=== PATIENT | female | born 1965 | race Caucasian/White ===

== ENCOUNTER 2022-08-25 09:24 | Outpatient (CLI) | payer BC, SELFPAY ==
[2022-08-25 14:57] LABS: Free T4 Free Thyroxine* 1.22 ng/dL (0.70-1.85)
== END 2022-08-25 09:25 | disposition home or self-care (01) ==
LOC: LKVREF 09:24
PROVIDERS: PCP Emergency Medicine; Visit Provider Emergency Medicine
DX: R79.89 Other specified abnormal findings of blood chemistry (principal)
CPT/HCPCS: 84439; 84443

== ENCOUNTER 2022-10-12 09:51 | Outpatient (CLI) | payer BC, SELFPAY | END 2022-10-12 09:52 | disposition home or self-care (01) | LOC: OP CLINIC 09:53 | PROVIDERS: PCP Emergency Medicine; Visit Provider Surgery | DX: Z12.11 Encounter for screening for malignant neoplasm of colon (principal); Z80.0 Family history of malignant neoplasm of digestive organs | CPT/HCPCS: 45378; 99153; J2250; J3010 ==

== ENCOUNTER 2022-11-16 08:03 | Outpatient (CLI) | payer BC, SELFPAY ==
--- NOTE | 2022-11-16 08:15 | CRLHL7_ITS ---
For Patients: As a result of the Century Cures Act, medical imaging exams and procedure reports are released immediately into your electronic medical record. You may view this report before your referring provider. If you have questions, please contact your health care provider. BILATERAL SCREENING MAMMOGRAM WITH COMPUTER-AIDED DETECTION AND TOMOSYNTHESIS TECHNIQUE: CC and MLO views were obtained. These mammographic images have been obtained using full-field digital technique. These mammographic images were interpreted with the benefit of computer-aided detection. Breast tomosynthesis was used in this interpretation. COMPARISON FILM: 10/14/15, 04/03/19 and 11/27/20. FINDINGS: The breasts are heterogeneously dense, which may obscure small masses. IMPRESSION: There is no radiographic evidence for malignancy. ASSESSMENT: BI-RADS Category 1: Negative RECOMMENDATION: Routine screening mammogram in 1 year. A lay language report of this examination will be provided to the patient. KIKO FERMIN M.D. Diagnostic Radiologist [email or web address] Transcribed: 3:[address]/Dictated by: Kiko Fermin MD @ 11/16/2022 11:21:00 AM (Electronically Signed)
== END 2022-11-16 08:04 | disposition home or self-care (01) ==
LOC: MAMMO 08:04
PROVIDERS: PCP Emergency Medicine; Visit Provider Emergency Medicine
DX: Z12.31 Encounter for screening mammogram for malignant neoplasm of breast (principal); R92.2 Inconclusive mammogram
CPT/HCPCS: 77063; 77067

== ENCOUNTER 2023-07-01 09:11 | Outpatient (CLI) | payer BC, SELFPAY | END 2023-07-01 09:12 | disposition home or self-care (01) | LOC: NFLDREF 15:05 | PROVIDERS: PCP Emergency Medicine; Referring Provider Emergency Medicine; Visit Provider Emergency Medicine | DX: R79.89 Other specified abnormal findings of blood chemistry (principal) | CPT/HCPCS: 80053; 80061; 84443 ==

== ENCOUNTER 2024-01-17 11:17 | Outpatient (CLI) | payer BC, SELFPAY ==
--- NOTE | 2024-01-17 11:30 | CRLHL7_ITS ---
For Patients: As a result of the Century Cures Act, medical imaging exams and procedure reports are released immediately into your electronic medical record. You may view this report before your referring provider. If you have questions, please contact your health care provider. BILATERAL SCREENING MAMMOGRAM WITH COMPUTER-AIDED DETECTION AND TOMOSYNTHESIS TECHNIQUE: CC and MLO views were obtained. These mammographic images have been obtained using full-field digital technique. These mammographic images were interpreted with the benefit of computer-aided detection. Breast Tomosynthesis was used in this interpretation. COMPARISON FILM: 11/16/22, 11/27/20, 04/03/19. FINDINGS: The breasts are heterogeneously dense, which may obscure small masses. IMPRESSION: There is no radiographic evidence for malignancy. ASSESSMENT: BI-RADS Category 1: Negative RECOMMENDATION: Routine screening mammogram in 1 year. A lay language report of this examination will be provided to the patient. Kiko Steve M.D. Diagnostic Radiologist [email or web address] SP/Dictated by: Kiko Steve MD @ 01/17/2024 12:57:00 PM (Electronically Signed)
== END 2024-01-17 11:18 | disposition home or self-care (01) ==
LOC: MAMMO 11:18
PROVIDERS: PCP Emergency Medicine; Visit Provider Emergency Medicine
DX: Z12.31 Encounter for screening mammogram for malignant neoplasm of breast (principal); R92.2 Inconclusive mammogram
CPT/HCPCS: 77063; 77067

== ENCOUNTER 2024-10-04 09:17 | Outpatient (CLI) | payer BC, SELFPAY | END 2024-10-04 09:18 | disposition home or self-care (01) | LOC: NFLDREF 10-06 04:52 | PROVIDERS: PCP Emergency Medicine; Referring Provider Emergency Medicine; Visit Provider Emergency Medicine | DX: I10 Essential (primary) hypertension (principal); R79.89 Other specified abnormal findings of blood chemistry; Z13.220 Encounter for screening for lipoid disorders | CPT/HCPCS: 80048; 80061; 84439; 84443 ==